=== PATIENT | male | born 1960 | race Caucasian/White ===

== ENCOUNTER → 2019-06-20 | Day surgery (SDC) | payer BC ==
[~2019-06-20] MED LIST: AMIT25TA PO; DULO60CA6 PO; FENO145T3 PO; HYDROmorphone 2 MG/ML VIAL IV PRN; INSU100V11 IJ; IV RINGERS,LACTATED 1000ML 1,000 ML IV SCH; LIDOCAINE 2% PF 5 ML VIAL. ONE; LISI-130 PO; MELO15TA23 PO; METO100T7 PO; MORPHINE SULFATE 2 MG/ML VIAL. IV PRN; ONDANSETRON PF 4 MG/2 ML VIAL. IV PRN; PROCHLORPERAZINE 10 MG/2 ML VIAL. IV PRN; PROPOFOL 40 ML IV ONE; fentaNYL PF VIAL 100 MCG/2 ML VIAL IV PRN
[2019-06-20 09:17] VITALS: BP 155/84
--- NOTE | 2019-06-20 09:33 | CONS ---
DATE OF CONSULTATION: 06/20/2019 REFERRING PHYSICIAN: Dinorah Johnson MD REASON FOR CONSULTATION: Positive Cologuard. HISTORY OF PRESENT ILLNESS: A 58-year-old male with past medical history significant for hyperlipidemia, diabetes, hypertension, seen for a screening colonoscopy. Bowel habits are regular without diarrhea or constipation. Weight and appetite are stable. There has been no bleeding. Cologuard was positive and is here for further evaluation. PAST MEDICAL HISTORY: History of C. diff, anxiety, asthma, depression, diabetes, hypertension, hyperlipidemia, and sleep apnea. ALLERGIES: AMLODIPINE. MEDICATIONS: Include amitriptyline, Cymbalta, fenofibrate, insulin, lisinopril, meloxicam, and metoprolol. FAMILY AND SOCIAL HISTORY: Significant for colon polyps in father. SOCIAL HISTORY: He is a nonsmoker, social drinker. PAST SURGICAL HISTORY: Eye surgery, hernia repair and vasectomy. REVIEW OF SYSTEMS: Per records. PHYSICAL EXAMINATION: GENERAL: Reveals a well-nourished, well-developed male who is alert, cooperative, in no acute distress. VITAL SIGNS: Temperature is 97.8, pulse 100, respirations 20. LUNGS: Clear. CARDIOVASCULAR: Reveals an S1, S2 without S3, S4 or appreciable murmur. ABDOMEN: Soft abdomen, normal bowel sounds, without appreciable hepatosplenomegaly. EXTREMITIES: Reveals no cyanosis, clubbing or edema. IMPRESSION AND PLAN: Colorectal screening is warranted at this time. Risks and benefits of procedure including risk of hemorrhage and perforation during the operation have been discussed and the patient is willing to proceed at this time. YVES VENEGAS MD DR: CARLOS/carlos JOB#: [id number] / [id number]
--- NOTE | 2019-06-21 14:07 | PATHOLOGY ---
[facility] Accession Number: [id number] . 01 Material submitted: . sigmoid colon - SIGMOID POLYP . 01 Clinical history: . CRC screen . 02 Diagnosis: Colonic mucosa, sigmoid colon polypectomy: - Tubular adenoma, showing focal high grade dysplasia. See comment. (JPM:brina; 06/21/2019) S 06/21/2019 1329 Local . 02 Comment: Sections of the sigmoid colon polypectomy reveal a tubular adenoma showing focal high grade dysplasia. The focus of high grade dysplasia is well away from the coagulated base of the polyp. (JPM:brina; 06/21/2019) . 02 Electronically signed: . Magnus Pimentel MD, Pathologist NPI- [id number] . 01 Gross description: . The specimen is received in formalin, labeled "Ray Shukla, sigmoid polyp". Received is a segment of red-brown soft tissue measuring 1.2 x 0.9 x 0.6 cm in greatest dimensions. The surgical margin is inked. The specimen is bisected perpendicular to the margin and entirely submitted in cassette A1. ([facility]; 06/20/2019) QAC/QAC 06/20/2019 1748 Local . 02 Pathologist provided ICD-10: D12.5 . 02 CPT . 378868 Specimen Comment: A courtesy copy of this report has been sent to [phone], [phone] Specimen Comment: [id number] Specimen Comment: Report sent to / DR BIRMINGHAM Performed at: 01 [facility] [address], [place], [place] [id number] MD Rohith Yuan MD Phone: [phone] Performed at: 02 [facility] [address] [place], [place] [id number] MD Magnus Pimentel MD Phone: [phone]
== END ==
LOC: ENDOS 07:20
PROVIDERS: ATTEND Internal Medicine Gastroenterology
DX: R19.5 Other fecal abnormalities (principal); D12.5 Benign neoplasm of sigmoid colon; K64.0 First degree hemorrhoids; E78.5 Hyperlipidemia, unspecified; E11.9 Type 2 diabetes mellitus without complications; I10 Essential (primary) hypertension; J45.909 Unspecified asthma, uncomplicated; F41.9 Anxiety disorder, unspecified; F32.9 Major depressive disorder, single episode, unspecified; Z79.84 Long term (current) use of oral hypoglycemic drugs; Z88.8 Allergy status to other drugs, medicaments and biological substances; Z72.89 Other problems related to lifestyle; Z98.52 Vasectomy status
CPT/HCPCS: 45385; 82962; 88305; J2001; J2704; 45384